=== PATIENT | female | born 1970 | race Caucasian/White ===

== ENCOUNTER → 2017-02-04 | Outpatient (CLI) | payer OTHER ==
[~2017-02-04] VITALS: Ht 152.4 cm; Wt 60.1 kg
[~2017-02-04] MED LIST: AMBIEN 5 MG TABL5 M1 PO; ASPIR 8181 MG PO; BELSOMRA10 MG PO; COMPAZINE10 MG PO; DULOXETINE HCL60 MG PO; ELIQUIS5 MG PO; ERGOCALCIF50000 UNIT PO; FLONASE 0.05%50 MCG NASAL; KLOR-CON 1010 MEQ PO; LASIX 20 MG TAB20 MG PO; LIPITOR 20 MG T20 M1 PO; METHADONE HCL 110 M1 PO; MS CONTIN30 MG PO; NEURONTIN 300300 M1 PO; NICOTINE GUM2 MG BUCCAL; NITROSTAT0.4 M1 SUBLING; NYSTATIN POWDER TOP; OMEPRAZOLE40 MG PO; OXYCONTIN20 M1 PO; PEPCID20 MG PO; REQUIP1 MG PO; SINEMET 25-1001 EAC1 PO; SYNTHROID75 MCG PO; TOPAMAX50 MG PO; TOPROL XL25 MG PO; TROSPIUM CHLORI60 MG PO; VENTOLIN HFA 1818 GM INH; VESICARE10 M1 PO; ZANAFLEX4 MG PO
--- NOTE | ~2017-02-04 | HPC ---
[facility] [address] [place] [address] PAIN MANAGEMENT CONSULTATION Name: WADE VILCHIS Room #: REG [facility] [id number] Admission: 02/04/17 Attend Phys: Pedro Luis Mcelroy DO Discharge: Date of : 66 Report #: [id number] THIS REPORT FOR: //name// CC: TEVIN Mcelroy HISTORY OF PRESENT ILLNESS: The patient is a 46-year-old female seen in consultation at the request of Dr. Tevin Lord for assistance with management of chronic pain concerns and opiate habituation and tolerance. The patient states that she is dissatisfied with her current pain provider; she had been managed by Dr. Jose Rafael Mayorga who apparently left and she says there is a PA that has replaced him. She states that the office is in disarray and she is searching for further pain management. She states that she is seeing Dr. Jacobs at [facility] who has done interventional therapy including radiofrequency neurolysis of the cervical facets on multiple occasions. It is curious to me that interventional pain physician is not managing her medication, though apparently Dr. Jacobs feels it is more valuable for him to simply do the interventional procedures. Nonetheless, the patient is in a very awkward place of trying to find a new physician to manage her chronic pain concerns. She last had RFL done this summer in November. She notes that it has been helpful with her neck and migraine pain, though she still complains of primary pain being migraine headaches and neck pain, second pain is axial back pain. 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 The patient rates the pain as 7-9 on a VAS. Currently taking supratherapeutic load of opiate, OxyContin 20 mg 3 times a day (60 mg of oxycodone equating to 90 mg of morphine) plus morphine 30 mg 4 times a day for a total daily load of 210 mg morphine equivalent daily. With this, she uses Cymbalta 60 mg a day, tizanidine 4 mg 2 tablets 3 times a day. Despite 210 mEq of morphine a day, she still rates her pain as 7-9 on a VAS. REVIEW OF SYSTEMS: Complete review of systems was attached to chart and gone over with the patient. She is . She has smoked for 35 years, currently smokes 1-1/2 packs a day and drinks alcohol fairly infrequently. Has some COPD and reactive airway disease, uses albuterol, metoprolol and Lasix for hypertension. History of coronary artery disease and the aforementioned mitral valve replacement in 2005, currently on Eliquis. She had a stroke about a year ago, in December 2015 and suffers from some aphasia. Does have overactive bladder, currently using Sanctura and VESIcare. Unfortunately, with this, she has some urinary incontinence and has subsequently developed a small lesion on the right stump. She has been unable to wear her prosthesis now for couple of months. Does have hypothyroidism for which she takes levothyroxine, gastroesophageal reflux for which she takes omeprazole and famotidine. Restless legs syndrome for which she takes Requip and carbidopa-levodopa. [address] [address] PAIN MANAGEMENT CONSULTATION Name: WADE VILCHISA Room #: REG ADRIANO Trujillo#: [id number] Admission: 10/19/17 Attend Phys: Vincent G. Navi, DO Discharge: Date of : 66 Report #: [id number] insomnia, she takes zolpidem p.r.n. Suffers from some depression, currently on Cymbalta. Again, OxyContin 20 mg t.i.d. and morphine immediate released 30 mg 4 times a day. Tizanidine for spasm. A Statin for dyslipidemia. Topamax for migraine prophylaxis 50 mg 3 times a day and prochlorperazine p.r.n. for nausea associated with migraines. The patient has been on disability for 11 years. Pain impact score is fairly high, averaging about 7.2 for all indices queried. PHYSICAL EXAMINATION: VITAL SIGNS: A 5 feet tall, 120-pound female, BMI is 25.9 kilograms per meter squared. Blood pressure is 113/81, pulse of 68, respirations of 16. NEUROLOGIC: Cranial nerves 2-12 are grossly intact. Pupils are equal and reactive to light and accommodation, somewhat pinpoint. Extraocular muscles are intact. There is no nystagmus or lateral gaze deviation. Cervical range of motion is full. Cervical extension exacerbates pain in the right neck and shoulder. She is tender to palpation over the splenius capitis and superior cervical facets. Does have a little aphasia, has some word searching, but she is alert and oriented and deemed to be a good historian. Upper extremities strength is diminished, but symmetric. History of carpal tunnel surgery, does have a little paresthesia in the hands. Tinel's is negative. Has a midline sternotomy incision well healed. Right stump has skin breakdown anterior and medial surface. Left lower extremity has good dorsiflexion, plantar flexion, extension and hip flexion strength. HEART: Regular and rhythmical without murmur. LUNGS: Generally clear to auscultation. SOCIAL HISTORY: The patient is , on disability for past 11 years. She has a son and a daughter. Daughter apparently has had issues with opiate habituation, has actually been in senior living, currently is out of senior living and has gone through drug rehab and is ostensibly clean and sober. Patient has significant nicotine habit; denies ethanol abuse nor recreational drug use. ASSESSMENT: 1. Chronic pain syndrome requiring high risk complex medication management. 2. Opiate habituation and tolerance. 3. Cervical spondylosis. 4. Migraine headaches by history. 5. History of mitral valve repair and stormy postoperative course including heparin-induced thrombocytopenia prompting right above knee amputation. 6. Nicotine habituation. RECOMMENDATIONS: 1. I had a long discussion with the patient today about therapeutic options. Ultimately, we elected to enter into an opiate consent to treat contract with the patient. Details were reviewed with the patient. [facility] [address] [place] [address] PAIN MANAGEMENT CONSULTATION Name: WADE VILCHIS ASHLEY Room #: REG [facility].#: [id number] Admission: 02/04/17 Attend Phys: Pedro Luis Mcelroy DO Discharge: Date of : 66 Report #: [id number] 2. Continue Cymbalta 60 mg a day. We will encourage the patient to follow up with a psychiatrist for further depression treatment. She is requesting Corinna by name, has been on this in the past. Psychiatric medications for specific mood disorder are beyond the scope of my practice. 3. I have reviewed with the patient today that she was on a supratherapeutic load of narcotic. We will need to wean to a more sustainable level. Presently, we will rotate to methadone, at a roughly 4-5:1 equivalent that would be 40-50 mg. We will start with methadone 10 mg 1 in the morning, 1 at noon, and 2 at night, I have taken the liberty of writing for 120 tablets. We will also give the patient clonidine 0.1 to take at bedtime if she develops any sympathetically-mediated opiate withdrawal type symptoms. I do not think that this will be an issue. 4. Follow up in 1 month and plan to wean methadone to 30 mg, one 10 tablet t.i.d. I have given the patient 2 months to quit smoking. We talked about rotating to "E cigarette" and weaning the nicotine level from there. The patient was discharged in good and stable condition. Follow up in 4 weeks for reevaluation. Thank you for allowing me to participate in the patient's care. <ELECTRONICALLY SIGNED> By: Pedro Luis Mcelroy DO 02/05/17 0926 [id number] Pedro Luis Mcelroy DO /nt
[2017-02-04 14:26] VITALS: BP 113/81
== END ==
LOC: PAIN 07:11
DX: M47.892 Other spondylosis, cervical region (principal); G43.909 Migraine, unspecified, not intractable, without status migrainosus; G89.29 Other chronic pain

== ENCOUNTER → 2017-05-10 | Outpatient (CLI) | payer OTHER ==
[~2017-05-10] VITALS: Ht 152.4 cm; Wt 54.4 kg
[~2017-05-10] MED LIST changes: +BELSOMRA15 MG PO; +CHANTIX1 EACH PO; +DOXEPIN 10 MG C10 M1 PO
--- NOTE | ~2017-05-10 | HPC ---
[facility] [address] [address] PAIN MANAGEMENT CONSULTATION Name: WADE VILCHIS Saeed Room #: REG [facility]#: [id number] Admission: 05/10/17 Attend Phys: Pedro Luis Mcelroy DO Discharge: Date of : 66 Report #: [id number] THIS REPORT FOR: //name// CC: AMRIT Mcelroy The patient is a 46-year-old female being treated for neuropathic pain status post right AKA, cervical spondylosis, headaches, depression, requiring high risk complex medication management. The patient was last seen in pain clinic, 03/19/2017, continued on baseline medication including methadone 10 mg t.i.d., gabapentin 300 mg t.i.d., tizanidine 4 mg t.i.d., doxepin 10 mg at bedtime for insomnia along with Belsomra 10 mg at bedtime. The patient was continued on Cymbalta 60 mg daily, though this is being prescribed by another treating physician. She returns to pain clinic today, struggling with anxiety and depression. She has resumed smoking (last visit, she had rotated to an e-cigarette with a weaning nicotine dosing). The patient notes that her tapxct-il-mad apparently is quite ill, though not actually on hospice. The patient believes he is likely to soon. Her has been actively involved in helping take care of his father and mother. The patient also notes that her daughter and son-in-law have moved into their "small home." All of these have increased stress and made sleep disruption more problematic for her. Today, she tells me her pain intensity score is an 8 on a VAS. She does not have arthritic issues. BMI is 23.4 kilograms per meter squared. Blood pressure is 99/63, pulse 69, respirations 16. Room air oxygen saturation is 98%. She does not use a prosthesis. She is in a motorized wheelchair. She does use Eliquis as a blood thinner. History of hypertension, medicine list was reconciled. She is on chronic opiate therapy and does have an opiate consent to treat contract signed. She does have ongoing chronic anxiety. Functional assessment impact score is quite high. The opiate risk assessment tool scores positive for depression and nicotine habituation. Puts her at moderate risk. Again, she continues to smoke back to half pack of cigarettes a day, though this is down somewhat from prior. I reviewed the chart. It appears that we had obtained a buccal drug swab at last visit, though I cannot find it in her chart today. We will make a note to get a buccal drug swab at next visit. We reviewed the fact that opiate medications are being used to provide analgesia adequate to support activities of daily living, not attempting to achieve a specific pain score on the 0-10 Visual Analog Scale. The current opiate [address] [address] PAIN MANAGEMENT CONSULTATION Name: WADE VILCHIS Saeed Room #: REG [facility] Cassandra#: [id number] Admission: 05/10/17 Attend Phys: Pedro Luis Mcelroy DO Discharge: Date of : 66 Report #: [id number] medications are providing sufficient analgesia to allow the patient to participate in activities of daily living. The patient is not exhibiting any aberrant behavior suggestive of drug diversion. The patient is not having any adverse reactions to medications. The patient is not suffering from daytime somnolence or mental acuity changes. The patient is managing opiate-induced constipation with appropriate lryf-fru-fxlpjmp agents and dietary considerations. The patient was counseled on concern for caution with operating a motor vehicle while using opiate medications. A physical exam was performed and the patient's functional status was evaluated. All patients with back pain were advised against the bed rest greater than 4 days and were advised to return to normal activities. Pain score assessment was noted and the treatment plan was reviewed with the patient. All current medications, both prescribed and OTC were reviewed and reconciled on the electronic medical record. Tobacco screening was accomplished and smoking cessation was advised when indicated. BMI was noted and diet/exercise modification was recommended for all patients following outside normal parameters. I reviewed with the patient today their responsibilities to safeguard prescription medications, reviewed their responsibility to utilize medications only as prescribed by the physician. They are to seek and receive pain medications only from 1 physician group ( [facility]). They are to use 1 pharmacy and keep the clinic informed if they change pharmacies. Their responsibilities include making followup visits in a timely fashion and to avoid abrupt discontinuation of medication usage. Their responsibilities further include bringing their medications (bottles from the pharmacy with residual pills) to the visit for possible confirmation of pill counts and the patient understands it is their responsibility to submit to random drug screens to ensure both that the medications prescribed are present, and that no other controlled substances are present. All prescriptions provided today were generated electronically. Long discussion with the patient today about therapeutic options. We talked about stress management and counseling. I did give her the [employer], which is a service from [facility] that offers multiple outreach programs to patient's for chronic pain, anxiety, depression, features of multiple nonpharmacologic coping skills. The patient is somewhat limited in her ability to attend group therapy sessions due to her reliance on others to drive. Again, she is status post right above knee amputation. Gets around on a motorized wheelchair, but does not have the ability to drive on her own. Physical exam otherwise unchanged from last visit. ASSESSMENT: Chronic headaches, neuropathic pain, status post right above-knee [facility] [address] [place] [address] PAIN MANAGEMENT CONSULTATION Name: WADE VILCHIS Room #: REG [facility].#: [id number] Admission: 05/10/17 Attend Phys: Pedro Luis Mcelroy DO Discharge: Date of : 66 Report #: [id number] amputation, chronic pain syndrome requiring high risk complex medication management, component of cervical spondylosis. RECOMMENDATIONS: 1. Buccal drug swab at next visit, no aberrant behavior suggestive of drug diversion, simply noting that I could not find the results from the test ostensibly done, 04/07/2017. 2. Continue methadone 10 mg t.i.d., gabapentin 300 mg t.i.d., tizanidine 4 mg t.i.d. and doxepin 10 mg at bedtime. 3. Increase Belsomra from 10 to 15 mg at bedtime. 4. Increase Cymbalta from 60 mg daily to 60 mg b.i.d. 5. Counseled regarding sleep hygiene, stress and anxiety management. The patient given contact information for [facility]. Discharged in good and stable condition. Follow up in 2 months for reevaluation. She was seen for prolonged visit, approximately 30 minutes was spent counseling the patient today. <ELECTRONICALLY SIGNED> By: Pedro Luis Mcelroy DO 05/12/17 0807 [id number] Pedro Luis Mcelroy DO /madyson
[2017-05-10 11:10] VITALS: BP 99/63
== END ==
LOC: PAIN 07:08
DX: R51 Headache (principal); M79.2 Neuralgia and neuritis, unspecified; Z89.611 Acquired absence of right leg above knee; Z79.899 Other long term (current) drug therapy; M47.812 Spondylosis without myelopathy or radiculopathy, cervical region

== ENCOUNTER → 2017-07-09 | Outpatient (CLI) | payer OTHER ==
[~2017-07-09] VITALS: Ht 152.4 cm; Wt 54.4 kg
--- NOTE | ~2017-07-09 | HPC ---
[facility] [address] [place] [address] PAIN MANAGEMENT CONSULTATION Name: WADE VILCHIS Saeed [facility] #: [facility] [id number] Admission: 07/09/17 Attend Phys: Pedro Luis Mcelroy DO Discharge: Date of : 66 Report #: [id number] THIS REPORT FOR: //name// CC: AMRIT Mcelroy DATE OF SERVICE: 07/09/2017 The patient is an unfortunate 47-year-old female being seen for multiple pain concerns, status post right above-knee amputation, now some 11 years ago; chronic neuropathic pain, component of cervical spondylosis; depression, requiring complex medication management. She was seen for prolonged visit, 05/10/2017. Continued patient on methadone 10 mg t.i.d., gabapentin 300 mg t.i.d., and tizanidine 4 mg t.i.d. for spasm. Ongoing sleep issues. Continue doxepin 10 mg at bedtime and increased Belsomra from 10 to 15 mg at bedtime and increased Cymbalta from 60 mg daily to b.i.d. She returns to the Pain Clinic today, I have given her contact information for multiple support groups including literature from [facility] for "[facility] [employer]" a group offering multiple average programs for chronic pain, anxiety, depression, offering multiple nonpharmacologic coping skills. The patient complained at the time of her limited ability to attend group sessions due to her reliance on others to drive. She does return to the Pain Clinic today. She appears a little more "up." Still notes pain remains problematic, rates it a 6 on a VAS. She states she has been having some increasing spasm in her back and some increasing pain at the right AKA stump. Again, it has been 11 years since her amputation. There are no skin issues, though she notes that her prosthesis does not fit well and causes some irritation. When I asked the last time she used it, she noted that she spends most of her time in a wheelchair. She did present to the ER about a month ago for some increasing spasm. They did give her six 5 mg Valium tablets. She took no opiate analgesics from them. She notes her primary pain is in the right stump, some chronic migraine headaches and a little back pain and spasm. PHYSICAL EXAMINATION: Shows a 5 feet tall, 120-pound female, in a wheelchair, right AKA, BMI is 23.4 kg/m2. Blood pressure 117/65, pulse 70, respirations are 14. She continues to use an e-cigarette and smoke. . Subjective pain score is 6 on VAS. She has not fallen in the last 3 months. Medication list was reconciled. She does use Eliquis for history of blood clots. She is hypertensive. Our opiate consent to treat contract was signed 02/04/2017. I did get a buccal drug swab today as there was none on the chart. [address] [address] PAIN MANAGEMENT CONSULTATION Name: WADE VILCHIS Room #: REG ADRIANO Trujillo#: [id number] Admission: 07/09/17 Attend Phys: Pedro Luis Mcelroy DO Discharge: Date of : 66 Report #: [id number] She is at a low risk on the opiate risk assessment tool, actually 2-3. Functional assessment tool is 43/70 for chronic pain. Again, she is down to 3-5 cigarettes a day. Physical exam otherwise is unchanged. She does appear a little more alert and oriented today. She smiles a little more during conversation. Does complain of ongoing pain, headaches, mid back and stump. No other changes noted. We reviewed the fact that opiate medications are being used to provide analgesia adequate to support activities of daily living, not attempting to achieve a specific pain score on the 0-10 Visual Analog Scale. The current opiate medications are providing sufficient analgesia to allow the patient to participate in activities of daily living. The patient is not exhibiting any aberrant behavior suggestive of drug diversion. The patient is not having any adverse reactions to medications. The patient is not suffering from daytime somnolence or mental acuity changes. The patient is managing opiate-induced constipation with appropriate lcbo-oav-doyiski agents and dietary considerations. The patient was counseled on concern for caution with operating a motor vehicle while using opiate medications. A physical exam was performed and the patient's functional status was evaluated. All patients with back pain were advised against the bed rest greater than 4 days and were advised to return to normal activities. Pain score assessment was noted and the treatment plan was reviewed with the patient. All current medications, both prescribed and OTC were reviewed and reconciled on the electronic medical record. Tobacco screening was accomplished and smoking cessation was advised when indicated. BMI was noted and diet/exercise modification was recommended for all patients following outside normal parameters. I reviewed with the patient today their responsibilities to safeguard prescription medications, reviewed their responsibility to utilize medications only as prescribed by the physician. They are to seek and receive pain medications only from 1 physician group ([facility]). They are to use 1 pharmacy and keep the clinic informed if they change pharmacies. Their responsibilities include making followup visits in a timely fashion and to avoid abrupt discontinuation of medication usage. Their responsibilities further include bringing their medications (bottles from the pharmacy with residual pills) to the visit for possible confirmation of pill counts and the patient understands it is their responsibility to submit to random drug screens to ensure both that the medications prescribed are present, and that no other controlled substances are present. All prescriptions provided today were generated electronically. ASSESSMENT: Chronic neuropathic pain status post right above-knee amputation, history of cervical spondylosis, chronic depression, requiring complex [facility] [address] [place] [address] PAIN MANAGEMENT CONSULTATION Name: WADE VILCHIS Room #: REG [facility] [id number] Admission: 07/09/17 Attend Phys: Pedro Luis Mcelroy DO Discharge: Date of : 66 Report #: [id number] medication management. RECOMMENDATION: I discouraged use of benzodiazepines with opiates. I did take the liberty today of increasing her tizanidine 4 mg t.i.d. to 1-2 tablets, i.e., 4-8 mg t.i.d. for spasm. I wrote a prescription for 100 tablets with 2 refills. Continue methadone 10 mg t.i.d., gabapentin 300 mg t.i.d., doxepin 10 mg at bedtime, Belsomra 15 mg at bedtime, Cymbalta 60 mg b.i.d. We did get a buccal swab today. No aberrant behavior suggestive for drug diversion, simply complying with our opiate consent to treat contract. We again had a moderately prolonged visit. A good deal of time spent counseling the patient, discussing need to overcome some aspects of social isolation and interact more. She states that she does have a good relationship with her . He is able bodied and can drive her, but she feels guilty relying on his time to take her to therapy sessions when he is working. Suggested online group as a possible alternative. Discharged in good and stable condition, again approximately 25-minute visit today. Buccal swab was obtained. <ELECTRONICALLY SIGNED> By: Pedro Luis Mcelroy DO 07/12/17 0813 [id number] 1844 Pedro Luis Mcelroy DO /nt
[2017-07-09 15:03] VITALS: BP 117/65
== END ==
LOC: PAIN 07:02
DX: M79.2 Neuralgia and neuritis, unspecified (principal); F32.9 Major depressive disorder, single episode, unspecified; Z79.899 Other long term (current) drug therapy; Z89.611 Acquired absence of right leg above knee